=== PATIENT | male | born 1965 | race Caucasian/White ===

== ENCOUNTER 2020-11-09 17:05 | Inpatient (IN) | payer OTHER ==
[~2020-11-09] VITALS: Ht 182.9 cm; Wt 70.3 kg
[2020-11-09 20:15] LABS: HEMOGLOBIN 13.1 gm/dl (14.0-17.5); RED BLOOD COUNT 4.27 M/UL (4.20-5.50); WHITE BLOOD COUNT 5.8 K/UL (4.5-11.0)
[2020-11-09 20:36] LABS: BUN/CREATININE RATIO 24 (0-10)
[2020-11-10 05:17] LABS: HEMOGLOBIN 13.5 gm/dl (14.0-17.5); RED BLOOD COUNT 4.42 M/UL (4.20-5.50); WHITE BLOOD COUNT 5.7 K/UL (4.5-11.0)
[2020-11-10 05:36] LABS: BUN/CREATININE RATIO 21 (0-10)
[2020-11-12 09:55] LABS: BUN/CREATININE RATIO 13 (0-10)
[2020-11-13 05:32] LABS: BUN/CREATININE RATIO 13 (0-10)
[2020-11-13 19:34] LABS: MONONUCLEAR CELLS 8 %; POLYMORPHONUCLEAR 92 %
[2020-11-15 04:42] LABS: HEMOGLOBIN 14.2 gm/dl (14.0-17.5); RED BLOOD COUNT 4.59 M/UL (4.20-5.50); WHITE BLOOD COUNT 7.5 K/UL (4.5-11.0)
[2020-11-15 04:56] LABS: BUN/CREATININE RATIO 16 (0-10)
[2020-11-15] MEDS ORDERED: NICOTINE PATCH1 EAC2 TD (08:58)
[2020-11-15] MEDS ORDERED: AUGMENTIN 875-1 EACH PO (08:58)
== END 2020-11-15 11:12 | disposition home or self-care (01) | DRG 603 ==
LOC: ER1 17:05 → M/S 22:44 → CDU 22:44 → M/S 23:22
PROVIDERS: Internal Medicine Infectious Disease; Physician Assistant; ADMIT Internal Medicine
DX: L03.115 Cellulitis of right lower limb (principal); L97.319 Non-pressure chronic ulcer of right ankle with unspecified severity; L02.415 Cutaneous abscess of right lower limb; E11.9 Type 2 diabetes mellitus without complications; H10.9 Unspecified conjunctivitis; I10 Essential (primary) hypertension; Z72.0 Tobacco use
CPT/HCPCS: 36415; 73701; 80048; 80053; 80202; 83036; 83605; 83735; 85025; 85652; 86140; 87040; 87070; 87205; 89051; 99284; J1644; J2543; J3370; J7030; J7070; Q9967; U0002